=== PATIENT | male | born 1945 | race Caucasian/White ===

== ENCOUNTER 2017-12-07 18:26 | Emergency (ER) | payer OTHER ==
[~2017-12-07] VITALS: Ht 177.8 cm; Wt 98.0 kg
[~2017-12-07 18:26] MED LIST: ALTACE10 M1 PO; BABY ASPIRIN81 MG PO; BACTRIM DS1 TAB PO; CIPRO500 MG PO; CRESTOR10 MG PO; DICLOXACILL250 MG PO; DICLOXACILL500 MG PO; LORTAB 5/3255 MG PO; METFORMIN500 MG PO; ZOFRAN ODT8 MG OR
[2017-12-07] MEDS ORDERED: TAMSULOSIN0.4 MG PO (18:46)
[2017-12-07] MEDS ORDERED: AVODART0.5 MG PO (18:48)
--- NOTE | 2017-12-07 19:01 | NUR ---
BREATHING TREATMENT GIVEN THROUGH MOUTH P. BREATHING TECH. FOR GOOD DEPOSITION TO THE LUNGS.
[2017-12-07 19:08] LABS: INFLUENZA A POSITIVE (NONE DETECT); INFLUENZA B POSITIVE (NONE DETECT)
[2017-12-07] MEDS ORDERED: TAM75CAP PO (19:17)
[2017-12-07] MEDS ORDERED: PROAIR HFA108 MCG/AC PR (19:18)
[2017-12-07 19:44] VITALS: BP 182/65
== END 2017-12-07 19:43 | disposition home or self-care (01) | DRG 195 ==
LOC: ED 18:26
PROVIDERS: Family Medicine
DX: J10.1 Influenza due to other identified influenza virus with other respiratory manifestations (principal); R50.9 Fever, unspecified; I10 Essential (primary) hypertension; R05 Cough; R06.02 Shortness of breath